=== PATIENT | male | born 1985 | race African-American/Black ===

== ENCOUNTER 2017-05-16 13:08 | Emergency (ER) | payer MEDICAID ==
[~2017-05-16] VITALS: Ht 182.9 cm; Wt 93.0 kg
[2017-05-16] MEDS ORDERED: KETOROLAC 30MG/ML VIAL IV ONE (14:30)
[2017-05-16] MEDS ORDERED: METOCLOPRAMIDE HCL 10MG/2ML VIAL IV ONE (14:30)
[2017-05-16] MEDS ORDERED: SODIUM CHLORIDE 0.9% 1,000 ML IV ONE (15:00)
[2017-05-16] MEDS ORDERED: ACETAMINOPHEN WITH CODEINE 300/30MG TABLET PO ONE (15:45)
[2017-05-16 16:24] VITALS: BP 156/97
== END 2017-05-16 16:52 | disposition home or self-care (01) ==
LOC: ER 13:08
DX: G43.909 Migraine, unspecified, not intractable, without status migrainosus (principal)
CPT/HCPCS: 96361; 96374; 96375; 99284; J1885; J2765; J7030; Z7610

== ENCOUNTER 2018-05-22 11:24 | Emergency (ER) | payer MEDICAID ==
[~2018-05-22] VITALS: Ht 170.2 cm; Wt 70.0 kg
[~2018-05-22 11:24] MED LIST: ETOMIDATE 2MG/ML 10ML VIAL IV ONE; SUCCINYLCHOLINE CHLORIDE 200MG/10ML IV ONE; VECURONIUM BROMIDE 10 MG/VIAL IV ONE
[2018-05-22] MEDS ORDERED: SODIUM CHLORIDE 0.9% 1,000 ML IV ONE (12:21)
[2018-05-22 13:05] LABS: BASOPHILS % 0.7 % (0.0-2.0); HEMATOCRIT. 43.5 % (42.0-52.0); HEMOGLOBIN. 14.5 g/dL (14.0-18.0); MEAN CORPUSCULAR HEMOGLOBIN 31.7 pg (28.0-32.0); MEAN PLATELET VOLUME 9.7 fl (7.4-10.4); MONOCYTES % 7.1 % (2.0-8.0); NEUTROPHILS % 79.2 % (40.0-76.0); PLATELET 125 x1000/uL (130-400); RED BLOOD CELL COUNT 4.58 mill/uL (4.7-6.1); RED CELL DISTRIBUTION WIDTH 13.4 % (11.6-14.6)
[2018-05-22 13:15] LABS: CHLORIDE 104 mEq/L (98-107)
[2018-05-22] MEDS ORDERED: MIDAZOLAM HCL 50 MG in DEXTROSE 5% WATER 40 ML IV ONE (13:15)
[2018-05-22] MEDS ORDERED: SUCCINYLCHOLINE CHLORIDE 200MG/10ML IV ONE (13:15)
[2018-05-22] MEDS ORDERED: MANNITOL 12.5G (25%) VIAL 50ML IV ONE (13:15)
[2018-05-22 13:20] LABS: ETHANOL BLOOD < 10 mg/dL
[2018-05-22 13:22] LABS: LDL CHOLESTEROL 83 mg/dL (5-100)
[2018-05-22] MEDS ORDERED: NICARDIPINE 40MG/200ML PREMIX 200 ML IV STA (13:27)
[2018-05-22] MEDS ORDERED: LABETALOL 5MG/ML SYR 20 MG/4 ML SYRINGE IV ONE (13:30)
[2018-05-22] MEDS ORDERED: LORAZEPAM 2MG/ML CPJ IV ONE (13:30)
[2018-05-22 13:35] LABS: CREATINE KINASE 5680 IU/L (39-308)
[2018-05-22] MEDS ORDERED: MANNITOL 20% 350 ML IV ONE (13:45)
[2018-05-22 14:29] LABS: INR 1.1; PARTIAL THROMBOPLASTIN TIME 25.2 sec (23.4-31.0); PROTHROMBIN TIME 11.4 sec (9.6-11.0)
[2018-05-22] MEDS ORDERED: VECURONIUM BROMIDE 10 MG/VIAL IV ONE ×2 (14:30→14:45)
[2018-05-22] MEDS ORDERED: IOHEXOL-350 100 ML BOTTLE ONE (14:38)
[2018-05-22] MEDS ORDERED: PROPOFOL 10MG/ML 100ML 100 ML IV SCH (14:45)
[2018-05-22] MEDS ORDERED: ETOMIDATE 2MG/ML 10ML VIAL IV ONE (14:45)
[2018-05-22 14:59] LABS: CLARITY URINE CLEAR (CLEAR); COLOR URINE YELLOW (YELLOW); KETONES URINE 2+ (NEGATIVE); LEUKOCYTE ESTERASE URINE NEGATIVE (NEGATIVE); NITRITE URINE NEGATIVE (NEGATIVE); OCCULT BLOOD URINE 1+ (NEGATIVE); PH URINE 6.5 (4.5-8.0); PROTEIN URINE NEGATIVE (NEGATIVE); SPECIFIC GRAVITY URINE 1.015 (1.005-1.030)
[2018-05-22 15:00] LABS: BG CARBOXYHEMOGLOBIN 0.4 % (0.5-1.5); BG DEOXYHEMOGLOBIN 4.6 % (0.0-5.0); BG FRACTION INSPIRED OXYGEN 32; BG HCO3 ACT 30.4 mmol/L (22.0-26.0); BG METHEMOGLOBIN 0.4 % (0.0-1.5); BG OXYGEN SATURATION 95.4 % (92.0-98.5); BG OXYHEMOGLOBIN 94.6 % (94.0-97.0); BG PCO2 58.7 mmHg (35.0-45.0); BG PH 7.332 (7.350-7.450); BG PO2 92.5 mmHg (75.0-100.0); BG SAMPLE SITE RIGHT RADIAL; BG TOTAL HEMOGLOBIN 14.1 g/dL (12.0-18.0); BG VENT MODE NASAL CANNULA
[2018-05-22 15:19] VITALS: BP 169/109
[2018-05-22 15:29] LABS: *AMPHETAMINES SCREEN URINE NEGATIVE (NEGATIVE); *BARBITURATES SCREEN URINE NEGATIVE (NEGATIVE); *BENZODIAZEPINES SCREEN URINE NEGATIVE (NEGATIVE); *COCAINE SCREEN URINE NEGATIVE (NEGATIVE); METHADONE URINE SCREEN NEGATIVE (NEGATIVE)
[2018-05-22 15:30] LABS: CANNABINOID URINE SCREEN NEGATIVE (NEGATIVE); OPIATES URINE SCREEN NEGATIVE (NEGATIVE)
[2018-05-22 15:32] LABS: PHENCYCLIDINE URINE SCREEN NEGATIVE (NEGATIVE)
== END 2018-05-22 15:30 | disposition short-term general hospital (02) ==
LOC: ER 11:24
DX: I63.9 Cerebral infarction, unspecified (principal); I65.22 Occlusion and stenosis of left carotid artery; I77.71 Dissection of carotid artery; I10 Essential (primary) hypertension; M62.82 Rhabdomyolysis; G43.909 Migraine, unspecified, not intractable, without status migrainosus
CPT/HCPCS: 31500; 36415; 36556; 36600; 51702; 70450; 70496; 70498; 71045; 80053; 80305; 80320; 81003; 82375; 82550; 82805; 82962; 83690; 83721; 83880; 84484; 85025; 85610; 85730; 93005; 96365; 96375; 99291; J0330; J2060; J2250; J2704; J3490; J7030; J7060; Q9967; Z7610; J2150; G0480